=== PATIENT | female | born 1965 | race Caucasian/White ===

== ENCOUNTER 2016-10-04 14:54 | Emergency (ER) | payer MEDICAID ==
--- NOTE | 2016-10-04 15:19 | ED Physician Chart ---
Chief Complaint/HPI - Patient Information Date Seen:: 10/04/16 Time Seen:: 15:10 Chief Complaint:: Elevated glucose. History of Present Illness:: Pt was brought in by her niece Windy. Pt is primarily [place]ian speaking. Interpretation is provided by her niece Windy per pt's request. Pt has h/o diabetes mellitus for about 15 years and has been treated with metformin 850 mg po bid. Pt states that she has been compliant with her medical therapy but not her diabetic diet. Pt states that she had her diabetic diet teaching and understand her diabetic diet. Pt had Accuchek at about 2 pm which was 300. Pt overall feels well without N/V/D. No lightheadedness. Pt denies polyuria, mentation change, or thirst. No bodily pain or discomfort otherwise. Allergies:: NKA Vitals:: see Nurse Note. Historian:: Patient Family MD/PCP:: Dr. Suero LMP:: Irregular. LNMP 07/13/16 Review:: Nurse's Note Reviewed Review of Systems - Review of Systems General/Constitutional: No fever, No chills, No weight loss, No weakness, No diaphoresis, No edema, No loss of appetite Skin: No skin lesions, No rash, No bruising Head: No headache, No light-headedness Eyes: No loss of vision, No pain, No diplopia ENT: No earache, No nasal drainage, No sore throat, No tinnitus Neck: No neck pain, No swelling, No thyromegaly, No stiffness, No mass noted Cardio Vascular: No chest pain, No palpitations, No PND, No orthopnea, No edema Pulmonary: No SOB, No cough, No sputum, No wheezing GI: No nausea, No vomiting, No diarrhea, No pain, No melena, No hematochezia, No constipation, No hematemesis G/U: No dysuria, No frequency, No hematuria Display Manager: No vaginal discharge, No abnormal vaginal bleed Musculoskeletal: No bone or joint pain, No back pain, No muscle pain Endocrine: No polyuria, No polydipsia Psychiatric: No prior psych history Hematopoietic: No bruising, No lymphadenopathy Allergic/Immuno: No urticaria, No angioedema Neurological: No syncope, No focal symptoms, No weakness, No paresthesia, No headache, No seizure, No dizziness, No confusion, No vertigo Past Medical History - Past Medical History Past Medical History: DM Family History: Diabetes Melitus (in father), HTN (in mother) Social History: Non Smoker, No Alcohol, No Drug Use, Single, Lives Alone, 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 Surgical History: None Psychiatricy History: None Medication: Reviewed Family Medical History - Family Member Father Ethnicity: Living Status: Hx Family Diabetes: Yes Physical Exam - Physical Examination General/Constitutional: Awake, Well-developed, well-nourished, Alert, No distress, GCS 15, Non-toxic appearing, Ambulatory Other Gen/Cons comments:: Breathes comfortably, speaks clearly, and ambulates without difficulty. Head: Atraumatic Eyes: Lids, conjuctiva normal, PERRL, EOMI Skin: Nl inspection, No rash, No skin lesions, No ecchymosis, Well hydrated, No lymphadenopathy ENMT: External ears, nose nl, Nasal exam nl, Lips, teeth, gums nl, Oropharynx nl , Tonsils nl Neck: Nontender, Full ROM w/o pain, No JVD, No nuchal rigidity, No bruit, No mass, No stridor Respiratory: Nl effort/Exclusion, Clear to Auscultation, No Wheeze/Rhonchi/Rales Cardio Vascular: RRR, No murmur, gallop, rubs, NL S1 S2 GI: No tenderness/rebounding/guarding, No organomegaly, No hernia, Normal BS's, Nondistended, No mass/bruits, No McBurney tenderness Other GI comments:: Abdomen is obese but soft : No CVA tenderness Extremities: No tenderness or effusion, Full ROM, normal strength in all extremities, No edema, Normal digits & nails Neuro/Psych: Alert/oriented (oriented x3. NO focal finding.), Judgement/insight normal, Mood normal, Normal gait, No focal deficits ED Septic Shock - . Is Septic Shock (SBP<90, OR Lactate>4 mmol\L) present?: No Reassessment (Disposition) - Reassessment Reassessment:: 1650 Pt feels well. She has been taking po well without N/V/D. Remaining lab results just became available. Lab results have been reviewed with pt. Pt requests to go home now and does not want further observation/management in hospital. Pt states that she is familiar with her diabetic diet and from now on will be compliant with her diabetic diet and medical therapy. Pt also states that she knows how to monitor her glucose at home. She also knows proper actions to be taken if hyper- or hypoglycemia occur. Aftercare instructions have been given. Interpretation is provided by her niece Windy per pt's request. Reassessment Condition:: Improved - Diagnosis Diagnosis:: Diabetes mellitus, suboptimally controlled due to noncompliance with diabetic diet. Stable. Serum glucose is 284. Pt states that she will follow her diabetic diet and medical therapy as instructed. Urinary tract infection, stable. - Aftercare/Follow up Instructions Aftercare/Follow-Up Instructions:: Refer to Discharge Instructions Notes:: Increase oral fluid. Pt again has been instructed and encouraged to be compliant with diabetic diet and medical therapy. Continue monitoring glucose at home. F/U with PCP Dr. Suero in one day for recheck with repeat lab studies urinalysis, BMP, and urinalysis. Return to ER immediately if condition worsens or if any further questions/problems. Medication Prescribed:: Bactrim DS one tab po q12h for 7 days. D-14 R-0 - Patient Disposition Discharge/Transfer:: Home Time:: 17:00 Condition at Disposition:: Stable, Improved
[2016-10-04 15:44] LABS: % EOSINOPHILS 0.5 % (0.0-5.0); % LYMPHOCYTES 23.1 % (20.0-50.0); % MONOCYTES 6.4 % (2.0-10.0); HEMATOCRIT 42.1 % (35.0-45.0); HEMOGLOBIN 14.5 gm/dL (11.7-15.5); MEAN CELL VOLUME 90.7 fl (81-100); MEAN CORPUSCULAR HEMOGLOBIN 31.2 pg (27.0-31.0); MEAN CORPUSCULAR HGB CONC 34.4 pg (28.0-36.0); MEAN PLATELET VOLUME 9.6 fl; NEUTROPHILE ABSOLUTE 6.6 Th/cmm (1.8-8.0); PLATELET COUNT 249 Th/cmm (150-400); RED BLOOD COUNT 4.65 Mil/cmm (3.80-5.10); RED CELL DISTRIBUTION WIDTH 12.5 % (11.5-20.0); WHITE BLOOD COUNT 9.4 Th/cmm (4.8-10.8)
[2016-10-04 15:59] LABS: INR 0.87 (0.5-1.4); PROTHROMBIN TIME (TEST) 8.9 SECONDS (9.5-11.5)
[2016-10-04 16:02] LABS: ALKALINE PHOSPHATASE 70 U/L (34-104); BILIRUBIN,TOTAL 0.5 mg/dL (0.3-1.0); BUN - UREA NITROGEN 9 mg/dL (7-25); BUN/CREATININE RATIO 22.5; CALCIUM SERUM 9.7 mg/dL (8.6-10.3); CARBON DIOXIDE 25.6 mEq/L (21.0-31.0); CHLORIDE 101 mEq/L (98-107); CREATININE - SERUM 0.4 mg/dL (0.6-1.2); GLUCOSE 284 mg/dL (70-105); POTASSIUM SERUM 3.6 mEq/L (3.5-5.1); SGOT 22 U/L (13-39); SGPT/ALT 31 U/L (7-52); SODIUM SERUM 131 mEq/L (136-145)
[2016-10-04 16:09] LABS: URINE BILIRUBIN NEGATIVE (NEGATIVE); URINE BLOOD NEGATIVE (NEGATIVE); URINE COLOR YELLOW; URINE GLUCOSE (UA) 500 mg/dL (NEGATIVE); URINE KETONE 15 mg/dL (NEGATIVE); URINE PH 5.5; URINE PROTEIN NEGATIVE (NEGATIVE); URINE UROBILINOGEN 0.2 E.U./dL (0.2 - 1.0)
[2016-10-04 16:10] LABS: URINE BACTERIA 1+ /hpf (NONE SEEN); URINE EPITHELIAL CELLS MODERATE /lpf (FEW); URINE RBC 0-2 /hpf (0-5)
[2016-10-04] MEDS ORDERED: Sulfamethoxazole/TMP 800/160mg Tab PO ONE (16:34)
[2016-10-04] MEDS ORDERED: Sulfamethoxazole/TMP 800/160mg Tab ONE (16:43)
== END 2016-10-04 17:00 | disposition home or self-care (01) ==
LOC: ER 14:54
DX: E11.65 Type 2 diabetes mellitus with hyperglycemia (principal); N39.0 Urinary tract infection, site not specified
CPT/HCPCS: 36415-UA; 80053-TC; 81001-TC; 81025-TC; 82010-TC; 82948-90; 83036-90; 85025-TC; 85610-TC; 87086-90; Z7502

== ENCOUNTER 2016-10-06 22:32 | Emergency (ER) | payer MEDICAID ==
--- NOTE | 2016-10-06 23:04 | ED Physician Chart ---
Chief Complaint/HPI - Patient Information Date Seen:: 10/06/16 Time Seen:: 22:35 Chief Complaint:: low blood sugar History of Present Illness:: 50-year-old female, diabetic, with acute, moderate to severe, now improved, low blood sugar that happened about 30 minutes prior to arrival. Says she had some associated shaking and lightheadedness. Started new medication, glipizide tonight for the first time. Takes metformin 1000 mg and glipizide 5 mg. Drank juice which improved the sensation of lightheadedness and shaking. Blood sugar noted to be 195 on arrival. Allergies:: Allergies Allergy/AdvReac Type Severity Reaction Status Date / Time No Known Allergies Allergy Verified 10/06/16 22:47 Vitals:: Vital Signs - 8 hr 10/06/16 22:35 Temp 97.2 F HR 121 RR 19 BP 170/93 O2 Sat % 100 Historian:: Patient Review:: Nurse's Note Reviewed Review of Systems - Review of Systems Other: Complete system review otherwise unremarkable except as noted in history of present illness. Past Medical History - Past Medical History Past Medical History: HTN, DM, Dyslipidemia Family History: None Social History: Non Smoker, No Alcohol, No Drug Use, Other (lives with family) Surgical History: None Psychiatricy History: None Medication: Reviewed Family Medical History - Family Member Father History Unknown: Yes Ethnicity: Living Status: Hx Family Diabetes: Yes Physical Exam - Physical Examination Other:: INITIAL VITAL SIGNS: Reviewed by me GENERAL: Alert and interactive. No acute distress HEAD: Head is normocephalic and atraumatic EYES: EOMI. PERRL. No scleral icterus. No conjunctival injection ENT: Moist mucous membranes. NECK: Supple. No masses. Full range of motion RESPIRATORY: No tachypnea. Clear breath sounds bilaterally. No wheezing, rales, or rhonchi CV: Regular rate and rhythm. No murmurs, rubs, or gallops ABDOMEN: Soft, non-distended, non-tender. No guarding. No rebound. No masses. EXTREMITIES: No deformity. No cyanosis. No edema. SKIN: Warm and dry. No obvious rashes. NEUROLOGIC: Alert and oriented. Face is symmetric. Speech is normal. Moves all extremities equally. Motor and sensory distally intact. Labs/Radiology/EKG Results - Lab Results Results: Laboratory Tests 10/06/16 22:41 POC Glucose 195 H ED Septic Shock - . Is Septic Shock (SBP<90, OR Lactate>4 mmol\L) present?: No - <6hrs of presentation: Vital Signs: Vital Signs - 8 hr 10/06/16 22:35 Temp 97.2 F HR 121 RR 19 BP 170/93 O2 Sat % 100 Reassessment (Disposition) - Reassessment Reassessment:: Patient started new medicines, glipizide,. Blood sugar apparently was 60 when she checked it. She drinks juice which improved it. Recommended discontinuing glipizide until further advice from the primary care physician. Follow-up PCP 1 -2 days. Return to ER precautions given. Patient says she understands and agrees the plan. Reassessment Condition:: Improved - Diagnosis Diagnosis:: Acute hypoglycemia Diabetes mellitus type 2 Hypertension - Aftercare/Follow up Instructions Aftercare/Follow-Up Instructions:: Counseled pt regarding lab results/diagnosis & need follow up, Refer to Discharge Instructions - Patient Disposition Discharge/Transfer:: Home Time:: 23:03 Condition at Disposition:: Improved ED Discharge Plan - Patient Disposition Additional Instructions: Stop taking your glipizide until further instructions from the primary care physician
== END 2016-10-06 23:20 | disposition home or self-care (01) ==
LOC: ER 22:32
DX: E16.2 Hypoglycemia, unspecified (principal); E11.9 Type 2 diabetes mellitus without complications; I10 Essential (primary) hypertension; E78.5 Hyperlipidemia, unspecified
CPT/HCPCS: 82948-90; Z7502

== ENCOUNTER 2017-07-22 19:42 | Emergency (ER) | payer MEDICAID ==
--- NOTE | 2017-07-22 21:42 | ED Physician Chart ---
ED Chief Complaint/HPI - Patient Information Date Seen:: 07/22/17 Time Seen:: 21:30 Chief Complaint:: cough History of Present Illness:: Patient's had a cough that slight amount of white sputum production for the last 4 days. She's had no fever. Patient did not receive influenza vaccination this season. Allergies:: Allergies Allergy/AdvReac Type Severity Reaction Status Date / Time No Known Allergies Allergy Verified 07/22/17 20:45 Vitals:: Vital Signs - 8 hr 07/22/17 20:20 Temp 98.8 F HR 106 RR 18 BP 133/74 O2 Sat % 97 Historian:: Patient, Family Member Review:: Nurse's Note Reviewed ED Review of Systems - Review of Systems General/Constitutional: Fever Skin: No skin lesions Head: No headache Eyes: No loss of vision ENT: No earache Neck: No neck pain Cardio Vascular: No chest pain Pulmonary: Cough, Sputum GI: No nausea, No vomiting, No diarrhea G/U: No dysuria, No hematuria, No nacturia Musculoskeletal: No bone or joint pain, No back pain, No muscle pain Endocrine: No polyuria, No polydipsia Psychiatric: No prior psych history Hematopoietic: No bruising Allergic/Immuno: No urticaria Neurological: No syncope ED Past Medical History - Past Medical History Past Medical History: HTN, DM Family History: HTN Social History: Non Smoker, No Alcohol Surgical History: other (retinal hemorrhage) Psychiatricy History: None Medication: Reviewed Family Medical History - Family Member Father History Unknown: Yes Ethnicity: Living Status: Hx Family Diabetes: Yes ED Physical Exam - Physical Examination General/Constitutional: Well-developed, well-nourished, No distress Head: Atraumatic Eyes: Lids, conjuctiva normal, PERRL Skin: Nl inspection, No rash ENMT: External ears, nose nl, TM canals nl, Nasal exam nl, Lips, teeth, gums nl , Oropharynx nl, Tonsils nl Neck: No nuchal rigidity Respiratory: Nl effort/Exclusion, Clear to Auscultation, No Wheeze/Rhonchi/Rales Cardio Vascular: RRR, No murmur, gallop, rubs GI: No tenderness/rebounding/guarding, No organomegaly, Nondistended, No mass/ bruits Extremities: Normal digits & nails Neuro/Psych: No focal deficits Misc: Normal back ED Labs/Radiology/EKG Results - Lab Results Results: Laboratory Results - last 24 hr 07/22/17 21:44 Influenza A (Rapid) NEG FOR INF A Influenza B (Rapid) NEG FOR INF B ED Septic Shock - . Is Septic Shock (SBP<90, OR Lactate>4 mmol\L) present?: No - <6hrs of presentation: Vital Signs: Vital Signs - 8 hr 07/22/17 20:20 Temp 98.8 F HR 106 RR 18 BP 133/74 O2 Sat % 97 ED Reassessment (Disposition) - Reassessment Reassessment:: Since patient is negative for both influenza A and B only symptomatic treatment is indicated. Reassessment Condition:: Unchanged - Diagnosis Diagnosis:: Acute viral syndrome - Aftercare/Follow up Instructions Aftercare/Follow-Up Instructions:: Refer to Discharge Instructions - Patient Disposition Discharge/Transfer:: Home Condition at Disposition:: Stable, Unchanged
[2017-07-22 22:07] LABS: INF A SCREEN NEG FOR INF A; INF B SCREEN NEG FOR INF B
== END 2017-07-22 22:10 | disposition home or self-care (01) ==
LOC: EDUNIT# → ER 19:42
DX: B34.9 Viral infection, unspecified (principal); I10 Essential (primary) hypertension; E11.9 Type 2 diabetes mellitus without complications
CPT/HCPCS: 87804-TC; Z7502